=== PATIENT | male | born 1960 | race Caucasian/White ===

== ENCOUNTER 2023-11-01 16:48 | Emergency (ER) | payer SELFPAY ==
[2023-11-01 16:53] VITALS: BP 120/69; PULSE 55; RESP 18; TEMP 97.6; BMI 29.6
[2023-11-01] MEDS ORDERED: diazePAM 2 MG TABLET ONE (18:14)
[2023-11-01] MEDS ORDERED: KETOROLAC TROMETHAMINE 30 MG/1 ML VIAL ONE (18:14)
[2023-11-01] MEDS: KETOROLAC TROMETHAMINE 30 MG/1 ML VIAL IM ONE (18:24)
[2023-11-01] MEDS: diazePAM 2 MG TABLET PO ONE (18:25)
== END 2023-11-01 18:32 | disposition home or self-care (01) ==
LOC: JERFT 16:48
PROC: 3E0133Z Introduction of Anti-inflammatory into Subcutaneous Tissue, Percutaneous Approach (ICD-10-PCS; principal; 2023-11-01)
DX: M25.511 Pain in right shoulder (principal)
CPT/HCPCS: 73030-TC-LT-FY; 93005; 93010; 99284-25